=== PATIENT | female | born 1965 | race Caucasian/White ===

== ENCOUNTER → 2016-07-09 | Outpatient (CLI) | payer BC ==
[2016-07-09 19:30] LABS: ALT 32 U/L (9-52); AST 25 U/L (14-36); Alkaline Phosphatase 83 U/L (38-126); Anion Gap 10 mmol/L; Blood Urea Nitrogen 12 mg/dL (7-17); Calcium 9.7 mg/dL (8.4-10.2); Carbon Dioxide 26 mmol/L (22-30); Chloride 104 mmol/L (98-107); Glucose 111 mg/dL (74-99); Non-African American GFR(MDRD) >60 (>60 ml/min/1.73 sqM); Potassium 4.1 mmol/L (3.5-5.1); Sodium 140 mmol/L (137-145); Total Bilirubin 0.6 mg/dL (0.2-1.3)
[2016-07-09 19:33] LABS: Rheumatoid Factor, Qnt <9 IU/mL (<12)
[2016-07-09 19:48] LABS: Follicle Stimulating Hormone 4.1 mIU/mL
[2016-07-09 22:29] LABS: Basophils % (A) 0 %; CH 31.7; Eosinophils # (A) 0.4 k/uL (0-0.7); Eosinophils % (A) 4 %; HCT 39.6 % (34.0-46.0); HDW 2.24; HGB 13.2 gm/dL (11.4-16.0); Luc # (Auto) 0.12; Luc % (Auto) 1; Lymphocytes # (A) 1.9 k/uL (1.0-4.8); Lymphocytes % (A) 22 %; MCH 32.3 pg (25.0-35.0); MCHC 33.5 g/dL (31.0-37.0); MCV 96.5 fL (80.0-100.0); Mean Platelet Volume 7.4; Monocytes # (A) 0.4 k/uL (0-1.0); Monocytes % (A) 5 %; Neutrophils # (A) 5.9 k/uL (1.3-7.7); Neutrophils % (A) 68 %; RDW 12.6 % (11.5-15.5); WBC 8.7 k/uL (3.8-10.6); WBC (Perox) 9.19
== END ==
LOC: MMGSC 14:46
PROVIDERS: ATTEND Family Medicine
DX: M25.50 Pain in unspecified joint (principal); E34.9 Endocrine disorder, unspecified
CPT/HCPCS: 36415; 80053; 83001; 83002; 84439; 84443; 85025; 86038; 86431

== ENCOUNTER → 2016-10-15 | Outpatient (CLI) | payer BC ==
[2016-10-15 19:07] LABS: Basophils # (A) 0.1 k/uL (0-0.2); Basophils % (A) 1 %; CH 31.5; CHCM 33.7; Eosinophils # (A) 0.7 k/uL (0-0.7); Eosinophils % (A) 7 %; HCT 42.2 % (34.0-46.0); HDW 2.23; HGB 14.5 gm/dL (11.4-16.0); Luc # (Auto) 0.16; Luc % (Auto) 2; Lymphocytes # (A) 1.7 k/uL (1.0-4.8); Lymphocytes % (A) 18 %; MCH 32.2 pg (25.0-35.0); MCHC 34.3 g/dL (31.0-37.0); MCV 93.9 fL (80.0-100.0); Mean Platelet Volume 7.6; Monocytes # (A) 0.6 k/uL (0-1.0); Monocytes % (A) 6 %; Neutrophils # (A) 6.3 k/uL (1.3-7.7); Neutrophils % (A) 66 %; RBC 4.49 m/uL (3.80-5.40); RDW 12.2 % (11.5-15.5); WBC 9.5 k/uL (3.8-10.6); WBC (Perox) 9.02
[2016-10-15 19:12] LABS: ALT 39 U/L (9-52); AST 25 U/L (14-36); Alkaline Phosphatase 104 U/L (38-126); Anion Gap 11 mmol/L; Blood Urea Nitrogen 12 mg/dL (7-17); Calcium 9.9 mg/dL (8.4-10.2); Carbon Dioxide 24 mmol/L (22-30); Chloride 106 mmol/L (98-107); Glucose 97 mg/dL (74-99); Iron 139 ug/dL (37-170); Non-African American GFR(MDRD) >60 (>60 ml/min/1.73 sqM); Potassium 4.4 mmol/L (3.5-5.1); Sodium 141 mmol/L (137-145); Total Protein 7.3 g/dL (6.3-8.2)
[2016-10-15 19:22] LABS: % Iron Saturation 49.3 % (20-50); Total Iron Binding Capacity 282 ug/dL (265-497)
== END | disposition home or self-care (01) ==
LOC: MMGSC 10:00
PROVIDERS: ATTEND Family Medicine
DX: G25.81 Restless legs syndrome (principal); R00.0 Tachycardia, unspecified
CPT/HCPCS: 36415; 80053; 82728; 83540; 83550; 84439; 84443; 85025

== ENCOUNTER → 2018-03-24 | Outpatient (CLI) | payer BC ==
--- NOTE | 2018-03-25 10:17 | MM ---
Reason for exam: screening (asymptomatic). History: Took hormonal contraceptives for 10 years. Physical Findings: A clinical breast exam by your physician is recommended on an annual basis and results should be correlated with mammographic findings. MG 3D Screening Mammo W/Cad Bilateral CC and MLO view(s) were taken. The breast tissue is heterogeneously dense. This may lower the sensitivity of mammography. There is no discrete abnormality. No significant changes when compared with prior studies. ASSESSMENT: Negative, BI-RAD 1 RECOMMENDATION: Routine screening mammogram of both breasts in 1 year.
== END | disposition home or self-care (01) ==
LOC: RADMAMWWP 15:26
PROVIDERS: ATTEND Family Medicine
DX: Z12.31 Encounter for screening mammogram for malignant neoplasm of breast (principal)
CPT/HCPCS: 77063; 77067

== ENCOUNTER 2020-03-04 08:15 | Day surgery (SDC) | payer BC ==
[2020-02-29 10:12] VITALS: BMI 31.3
[~2020-03-04 08:15] MED LIST: LACTATED RINGERS 1,000 ML IV SCH; LIDOCAINE 1% (10MG/ML) FOR IV START INTRADERMA PRN
[2020-03-04 08:30] VITALS: TEMP 97.7
[2020-03-04] MEDS ORDERED: PROPOFOL 10 MG/ML 20 ML VIAL IV ONE (09:07)
[2020-03-04 09:35] VITALS: PULSE 70
--- NOTE | 2020-03-04 09:35 | P.PCN ---
Date of Procedure: 03/04/20 Description of Procedure: BRIEF HISTORY: Patient is a 54-year-old female presenting for outpatient colonoscopy for screening for malignant neoplasm of the colon. No family history of colon cancer. No change in bowel habits but she does report occasional blood with wiping after bowel movements. No prior colonoscopy. PROCEDURE PERFORMED: Colonoscopy with polypectomy. PREOPERATIVE DIAGNOSIS: Screening for malignant neoplasm of the colon, no prior colonoscopy. ESTIMATED BLOOD LOSS: Minimal. IV sedation per Anesthesia. PROCEDURE: After informed consent was obtained, the patient, was brought into the endoscopy unit. IV sedation was administered by Anesthesia under continuous monitoring. Digital rectal examination was normal. Initially the Olympus CF-190 flexible video colonoscope was then inserted in the rectum, gradually advanced into the cecum without any difficulty. Careful examination was performed as the scope was gradually being withdrawn. Ileocecal valve and the appendiceal orifice were visualized and appeared normal. Prep was excellent. Mucosa of the cecum, ascend ing colon, transverse colon, descending colon, sigmoid colon, and rectum appeared normal. Multiple small mouth diverticula noted throughout the entire colon. Pedunculated 12 mm distal sigmoid polyp 20 cm from the anal verge removed with hot snare polypectomy. Retroflexion was performed in the rectum and no lesions were seen, low-grade internal hemorrhoids. The patient tolerated the procedure well. IMPRESSION: Pedunculated sigmoid colon polyp removed with hot snare polypectomy. Mild pandiverticulosis. Internal hemorrhoids. RECOMMENDATIONS: Findings of this examination were discussed with the patient. Okay to resume diet. Okay to resume medications. Await pathology from polypectomy. Recommend repeat colonoscopy in 3 years for colon polyp pending pathology from polypectomy..
[2020-03-04 09:59] VITALS: BP 110/76; RESP 18
== END 2020-03-04 10:10 | disposition home or self-care (01) ==
LOC: ORWHC2ENDO 08:15
PROVIDERS: ATTEND Internal Medicine
DX: Z12.11 Encounter for screening for malignant neoplasm of colon (principal); D12.5 Benign neoplasm of sigmoid colon; K57.30 Diverticulosis of large intestine without perforation or abscess without bleeding; K64.8 Other hemorrhoids; Z88.0 Allergy status to penicillin; Z79.52 Long term (current) use of systemic steroids; Z79.899 Other long term (current) drug therapy; Z98.890 Other specified postprocedural states; I10 Essential (primary) hypertension; J45.909 Unspecified asthma, uncomplicated; Z96.652 Presence of left artificial knee joint
CPT/HCPCS: 81025; 88305; 45385; J2704

== ENCOUNTER → 2020-05-24 | Outpatient (CLI) | payer BC ==
--- NOTE | 2020-05-28 10:46 | MM ---
Reason for exam: screening (asymptomatic). Last mammogram was performed 2 years and 2 months ago. History: Took hormonal contraceptives for 10 years. Physical Findings: A clinical breast exam by your physician is recommended on an annual basis and results should be correlated with mammographic findings. MG 3D Screening Mammo W/Cad Bilateral CC and MLO view(s) were taken. Prior study comparison: March 24, 2018, bilateral MG 3d screening mammo w/cad. There are scattered fibroglandular densities. No significant changes when compared with prior studies. ASSESSMENT: Negative, BI-RAD 1 RECOMMENDATION: Routine screening mammogram of both breasts in 1 year.
== END ==
LOC: RADMAMWWP 14:31
PROVIDERS: ATTEND Family Medicine
DX: Z12.31 Encounter for screening mammogram for malignant neoplasm of breast (principal)
CPT/HCPCS: 77063; 77067

== ENCOUNTER → 2021-10-29 | Outpatient (CLI) | payer BC ==
--- NOTE | 2021-10-29 17:57 | CT ---
EXAMINATION TYPE: CT sinus wo con CT DLP: 795.9 mGycm, Automated exposure control for dose reduction was used. DATE OF EXAM: 10/29/2021 5:17 PM COMPARISON: None. CLINICAL INDICATION:Female, 56 years old with history of J32.9 chronic sinusitis; PHH, chronic sinusi tis CONTRAST: None. TECHNIQUE: Multiple thin axial images were obtained through the paranasal sinuses without the use of IV contrast. Additional coronal and sagittal reformatted images were submitted for evaluation. FINDINGS: Frontal sinuses: Normally developed aerated. Frontal Recess: Clear Maxillary Sinuses: Normally developed. Complete opacification of the right maxillary sinus. Minimal m ucosal thickening of the left maxillary sinus. Maxillary Infundibula(OMC): Complete opacification of the right ostiomeatal complex. The left ostiome atal complex is patent., No Rex cells identified. Ethmoid sinuses: Normally developed and aerated. Ethmoidal notch: Supraorbital pneumatization is iden tified. Sphenoid sinuses: Normally developed and aerated. There is sellar sphenoid sinus pneumatization witho ut evidence of dehiscence. No dehiscence of carotid canal. No evidence of optic nerve dehiscence wit hin the sphenoid sinus. No evidence of Onodi cells. Sphenoethmoidal recesses: Clear. Nasal septum: Mild deviation of the nasal septum to the left.. Nasal Turbinates: A frederick bullosa defect is seen involving the right middle turbinate. Mastoid air cells & middle ears: The air cells are clear. The middle ears are grossly unremarkable. Modified Soft tissues & Brain: Partially seen without gross abnormality. Globes are intact. Other: Cribriform plate demonstrates symmetric Keros classification type 2 cribriform plate. No evidence of bony dehiscence of skull base. Lamina papyracea is intact without evidence of remote orbital fracture or orbital prolapse into the e thmoid sinus. Pneumatization of the john raquel. IMPRESSION: Right maxillary sinus disease with complete opacification. There is opacification of the right ostiom eatal complex.
== END | disposition home or self-care (01) ==
LOC: RADCTMAIN 15:56
PROVIDERS: ATTEND Otolaryngology
DX: J32.9 Chronic sinusitis, unspecified (principal)
CPT/HCPCS: 70486

== ENCOUNTER 2021-12-17 07:17 | Day surgery (SDC) | payer BC ==
[2021-12-15 15:47] VITALS: BMI 31.3
[~2021-12-17 07:17] MED LIST changes: +DEXAMETHASONE SOD PHOSPHATE 4 MG/ML 1 ML VIAL IV ONE; +DEXAMETHASONE SOD PHOSPHATE 4 MG/ML 1 ML VIAL IV PRN; +FAMOTIDINE 20 MG/2 ML VIAL IV PRN; +HYDROmorphone 0.5 MG/0.5 ML SYRINGE IVP PRN; +MIDAZOLAM 2 MG/2 ML VIAL IV PRN; +ONDANSETRON 4 MG/2 ML VIAL IVP ONE; +ONDANSETRON 4 MG/2 ML VIAL IVP PRN
[2021-12-17] MEDS: OXYMETAZOLINE 0.05% NASL SPRAY 1 SPRAY BOTTLE EA NOSTRIL PRN ×5 (07:50→08:10)
[2021-12-17] MEDS ORDERED: LIDOCAINE 2% INJ 20 MG/ML (2 ML VIAL) ONE (08:46)
[2021-12-17] MEDS ORDERED: SUCCINYLCHOLINE CHLORIDE 200 MG/10 ML VIAL IV ONE (08:46)
[2021-12-17] MEDS ORDERED: PROPOFOL 10 MG/ML 20 ML VIAL IV ONE (08:46)
[2021-12-17] MEDS ORDERED: MIDAZOLAM 2 MG/2 ML VIAL ONE (08:46)
[2021-12-17] MEDS ORDERED: fentaNYL (PF) 50 MCG/ML 2 ML AMP ONE (08:46)
[2021-12-17] MEDS ORDERED: DEXAMETHASONE SOD PHOSPHATE 10 MG/ML 1 ML VIAL ONE (08:46)
[2021-12-17] MEDS ORDERED: LIDOCAINE 1%-EPI 1:100,000 20 ML VIAL SUBMUCOSAL ONE ×2 (08:57→09:10)
[2021-12-17] MEDS ORDERED: CLINDAMYCIN IV ONE ×2 (09:00)
[2021-12-17] MEDS ORDERED: [UNRECOGNIZED DRUG - OTHER] IV ONE ×2 (09:00)
[2021-12-17] MEDS ORDERED: SODIUM CHLORIDE 0.9% IV ONE ×2 (09:00)
--- NOTE | 2021-12-17 09:58 | P.OP ---
Date of Procedure: 12/17/21 Preoperative Diagnosis: Deviated nasal septum Inferior turbinate hypertrophy Chronic sinusitis Postoperative Diagnosis: Same Procedure(s) Performed: Septoplasty Outfractured and submucous resection of the inferior turbinates Bilateral endoscopic sinus surgery including bilateral maxillary antrostomy with removal of tissue from the right maxillary sinus and right frederick bullectomy Anesthesia: JEFFERSON Surgeon: Jethro Welsh Estimated Blood Loss (ml): 5 Pathology: other (Nasal septal bone and cartilage and sinus contents) Condition: stable Disposition: PACU Indications for Procedure: This is a 56-year-old white female whose had difficulties with chronic nasal airway obstruction and chronic sinusitis with the chronic sinusitis especially in the right maxillary sinus with chronic purulence despite medical management Operative Findings: Nasal septum deviated to the left with inferior turbinate hypertrophy bilaterally. 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 The patient underwent induction of general anesthesia with oral endotracheal intubation without difficulty. The patient was prepped and draped in the usual aseptic fashion with the orbits in the operating field for monitoring to the case and the computed tomography scan was on the computer screen for review throughout the case. 1% lidocaine with 1 :100,000 epinephrine was infused submucosally into both sides of the nasal septum as well as the lateral nasal wall and anterior tips of the middle turbinates. While this was taking vasoconstrictive effect the inferior turbinates were infractured with Macon elevator and partial submucous resection of the inferior turbinates was performed with a portion of the submucosal soft tissue and the inferior turbinate bone removed with Coblation device. The inferior turbinates were then outfractured with the Macon elevator. A left hemitransfixion incision was then made with the mucoperichondrial and mucoperiosteal flap on the left elevated. The bony cartilaginous junction was disarticulated and the mucoperiosteal flap on the right was elevated. Bony nasal septal deformities were removed with Lory forceps and an inferior cartilaginous strip was removed leaving a full 1.5 cm caudal strut. Checking intranasally this corrected the nasoseptal deformities and the hemitransfixion incision was closed with a running 4-0 chromic suture. Full 0 endoscopic examination is performed bilaterally. Beginning on the left, the middle turbinate was medialized. The maxillary ostium was located with a ballpoint probe and an infundibulotomy was performed followed by uncinectomy. The maxillary antrostomy was enlarged at the expense of the anterior and posterior fontanelle taking care anteriorly not to injure the lacrimal bone. The maxillary sinus was evaluated with 30 and 70 endoscope . There was mild mucosal thickening in the left maxillary sinus. Attention was then turned to the right where the procedures were followed as they had been on the left including the infundibulotomy uncinectomy maxillary antrostomy with removal of tissue from the right maxillary sinus and culture of the purulence. Exploration of the right maxillary sinus was also performed. The ethmoid bulla was overhanging on the right and therefore right anterior ethmoidectomy was also performed. 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 [Nasopore nasal dressing was placed in the middle meatus bilaterally under direct visualization on the right this was done in the ethmoid labyrinth but was placed so that the maxillary ostium was not obstructed.]. Bilateral Sherman airway splints coated with bacitracin ointment were placed and sutured transseptally with a 4-0 nylon suture. The patient was suctioned in oral gastric fashion and was allowed to emerge from general anesthesia having tolerated procedure well and was extubated in the operating suite and transferred to the postoperative recovery area in satisfactory condition.
[2021-12-17 10:11] VITALS: TEMP 97
[2021-12-17 11:11] VITALS: RESP 16
[2021-12-17] MEDS ORDERED: HYDROcodone/APAP 5-325MG 1 EACH TAB ONE (11:21)
[2021-12-17] MEDS ORDERED: HYDROcodone/APAP 5-325MG 1 EACH TAB PO ONE (11:22)
[2021-12-17 11:38] VITALS: BP 135/98; PULSE 78
== END 2021-12-17 12:16 | disposition home or self-care (01) ==
LOC: OR 07:17
PROVIDERS: ATTEND Otolaryngology
DX: J34.2 Deviated nasal septum (principal); J34.3 Hypertrophy of nasal turbinates; J32.0 Chronic maxillary sinusitis; I10 Essential (primary) hypertension; J45.909 Unspecified asthma, uncomplicated; Z96.60 Presence of unspecified orthopedic joint implant; Z88.0 Allergy status to penicillin; Z82.5 Family history of asthma and other chronic lower respiratory diseases; Z82.61 Family history of arthritis; Z79.899 Other long term (current) drug therapy
CPT/HCPCS: 81025; 88305; 88300; 87070; 87205; 87075; 30520; 30140; 31267; J2250; J0330; J1100 ×2; J2405; J3010; J2704; J1170; J2001

== ENCOUNTER → 2022-07-20 | Outpatient (CLI) | payer BC ==
--- NOTE | 2022-07-21 19:15 | MM ---
Reason for Exam: Screening (asymptomatic). Last mammogram was performed 2 year(s) and 2 month(s) ago. Patient History: Menarche at age 18. First Full-Term at age 29. Patient used Hormonal Contraceptives for 10 years. Risk Values: Violet 5 year model risk: 1.2%. NCI Lifetime model risk: 8.3%. Prior Study Comparison: 03/24/2018 Bilateral Screening Mammogram, [facility]. 05/24/2020 Bilateral Screening Mammogram, [facility]. Tissue Density: There are scattered fibroglandular densities. Findings: Analyzed By CAD. There is no suspicious group of microcalcifications or new suspicious mass in either breast. Overall Assessment: Benign, BI-RAD 2 Management: Screening Mammogram of both breasts in 1 year. . Patient should continue monthly self-breast exams. A clinical breast exam by your physician is recommended on an annual basis. This exam should not preclude additional follow-up of suspicious palpable abnormalities. Note on Violet scores and lifetime risk: 1. A Violet score greater than 3% is considered moderate risk. If this is the case, consider specialist referral to assess eligibility for a risk reducing agent. 2. If overall lifetime risk for the development of breast cancer is 20% or higher, the patient may qualify for future screening with alternating mammogram and breast MRI. Electronically signed and approved by: Rodger Rao M.D. Radiologist
== END | disposition home or self-care (01) ==
LOC: RADMAMWWP 13:41
PROVIDERS: ATTEND Family Medicine
DX: Z12.31 Encounter for screening mammogram for malignant neoplasm of breast (principal)
CPT/HCPCS: 77063; 77067

== ENCOUNTER → 2022-09-02 | Outpatient (CLI) | payer BC ==
--- NOTE | 2022-09-06 21:01 | MR ---
EXAMINATION TYPE: MR wrist RT wo con DATE OF EXAM: 09/02/2022 COMPARISON: Radiograph 08/13/2022 HISTORY: 57-year-old female M25.531 Rt wrist pain, no injury, possible blood flow interruption TECHNIQUE: Multiplanar, multisequence images of the right wrist were obtained without IV contrast. FINDINGS: There is severe focal degenerative change along the radiolunate joint with loss of articular cartilag e, irregularity of the subchondral bone, and extensive reactive marrow edema and cystic change. Changes also extend to the ulnar proximal aspect of the lunate. However, there is only minimal degene rative signal within the central TFC and overall neutral ulnar variance. Scapholunate ligament appears intact. Moderate to severe degenerative change triscaphe joint and mild within the first CMC joint. Thickening of the median nerve at the level of the distal wrist crease to 16 sq mm. Volar flexor tend ons otherwise appear intact. The ECU shows marked anterior subluxation, perched on top of the ulnar styloid process. Overlying sof t tissue swelling. Otherwise, the dorsal extensor tendons appear satisfactory. Otherwise, no acute or healing fracture is seen. 6 mm ganglion cyst along the radial volar aspect of the wrist containing tiny loose bodies. IMPRESSION: 1. 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 2. Degenerative change extends to the ulnar proximal aspect of the lunate bone but there is no overt positive ulnar variance to clearly indicate ulnar impaction syndrome. Also, there is only minimal de generative signal within the central TFC without evident tear. Clinically correlate. 3. Small 6 mm ganglion cyst along the volar radial aspect of the wrist containing tiny loose bodies. 4. 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 5. ECU subsheath sprain with markedly subluxed ECU, perched on top of the ulnar styloid process. 6. Thickening of the median nerve may be seen with carpal tunnel syndrome. Clinically correlate.
== END | disposition home or self-care (01) ==
LOC: RADMRIMAIN 20:30
PROVIDERS: ATTEND Orthopaedic Surgery Hand Surgery
DX: M19.031 Primary osteoarthritis, right wrist (principal); M67.431 Ganglion, right wrist

== ENCOUNTER 2023-03-05 12:54 | Day surgery (SDC) | payer BC ==
[2023-03-03 08:55] VITALS: BMI 31.3
[2023-03-05] MEDS ORDERED: LACTATED RINGERS 1,000 ML IV ONE (14:04)
[2023-03-05 14:23] VITALS: TEMP 98.2
[2023-03-05] MEDS ORDERED: PROPOFOL 10 MG/ML 20 ML VIAL IV ONE (15:11)
--- NOTE | 2023-03-05 15:28 | P.PCN ---
Date of Procedure: 03/05/23 Procedure(s) Performed: BRIEF HISTORY: Patient is a 57-year-old pleasant white female scheduled for an elective colonoscopy as a part of evaluation of prior history of colon polyps. Last colonoscopy was 3 years ago and was noted to have a tubular villous adenoma PROCEDURE PERFORMED: Colonoscopy. PREOPERATIVE DIAGNOSIS: History of colon polyps. IV sedation per Anesthesia. PROCEDURE: After informed consent was obtained, the patient, was brought into the endoscopy unit. IV sedation was administered by Anesthesia under continuous monitoring. Digital rectal examination was normal. Initially the Olympus CF-160 flexible video colonoscope was then inserted in the rectum, gradually advanced into the cecum without any difficulty. Careful examination was performed as the scope was gradually being withdrawn. Ileocecal valve and the appendiceal orifice were visualized and appeared normal. Prep was excellent. Mucosa of the cecum, ascending colon, transverse colon, descending colon, sigmoid colon, and rectum appeared normal. On recent sigmoid diverticulosis. Retroflexion was performed in the rectum and small internal hemorrhoids were seen. The patient tolerated the procedure well. IMPRESSION: Normal-appearing colon from rectum to cecum no evidence of colorectal neoplasia Sigmoid diverticulosis hemorr smallhoids. RECOMMENDATIONS: Findings of this examination were discussed with the patient as well as a family. She was advised to have a repeat screening colonoscopy in 5 years because of the prior history of colon polyps..
[2023-03-05] MEDS ORDERED: LACTATED RINGERS 1,000 ML IV SCH (15:34)
[2023-03-05] MEDS ORDERED: LIDOCAINE 1% (10MG/ML) FOR IV START INTRADERMA PRN (15:34)
[2023-03-05 16:26] VITALS: BP 117/73; PULSE 63; RESP 18
== END 2023-03-05 16:13 | disposition home or self-care (01) ==
LOC: ORWHC2ENDO 12:54
PROVIDERS: ATTEND Internal Medicine Gastroenterology
DX: Z12.11 Encounter for screening for malignant neoplasm of colon (principal); K57.30 Diverticulosis of large intestine without perforation or abscess without bleeding; K64.8 Other hemorrhoids; I10 Essential (primary) hypertension; J45.909 Unspecified asthma, uncomplicated; M19.90 Unspecified osteoarthritis, unspecified site; K21.9 Gastro-esophageal reflux disease without esophagitis; Z88.0 Allergy status to penicillin; Z86.010 Personal history of colon polyps; Z79.51 Long term (current) use of inhaled steroids; Z79.899 Other long term (current) drug therapy
CPT/HCPCS: 45378; J2704

== ENCOUNTER → 2023-09-07 | Outpatient (CLI) | payer BC ==
--- NOTE | 2023-09-08 10:17 | MM ---
Reason for Exam: Screening (asymptomatic). Last mammogram was performed 1 year(s) and 1 month(s) ago. Patient History: Menarche at age 18. First Full-Term at age 29. Perimenopausal. Patient used Hormonal Contraceptives for 10 years. Risk Values: Violet 5 year model risk: 1.2%. NCI Lifetime model risk: 8.1%. Prior Study Comparison: 03/24/2018 Bilateral Screening Mammogram, [facility]. 05/24/2020 Bilateral Screening Mammogram, [facility]. 07/20/2022 Bilateral MG 3D screening mammo w/cad, [facility]. Tissue Density: There are scattered areas of fibroglandular density. Findings: Analyzed By CAD. There is no suspicious group of microcalcifications or new suspicious mass in either breast. Overall Assessment: Negative, BI-RAD 1 Management: Screening Mammogram of both breasts in 1 year. . Patient should continue monthly self-breast exams. A clinical breast exam by your physician is recommended on an annual basis. This exam should not preclude additional follow-up of suspicious palpable abnormalities. Note on Violet scores and lifetime risk: 1. A Violet score greater than 3% is considered moderate risk. If this is the case, consider specialist referral to assess eligibility for a risk reducing agent. 2. If overall lifetime risk for the development of breast cancer is 20% or higher, the patient may qualify for future screening with alternating mammogram and breast MRI. Electronically signed and approved by: Nahid Chisholm M.D. Radiologis
== END | disposition home or self-care (01) ==
LOC: RADMAMWWP 08:55
PROVIDERS: ATTEND Family Medicine
DX: Z12.31 Encounter for screening mammogram for malignant neoplasm of breast (principal)
CPT/HCPCS: 77063; 77067